=== PATIENT | female | born 2005 | race Caucasian/White ===

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

== ENCOUNTER 2024-01-06 01:39 | Emergency (ER) | payer BC, SELFPAY ==
[2024-01-06] VITALS (12 sets, daily range): BP systolic 117–138; BP diastolic 77–79; PULSE 98–134; RESP 11–25; TEMP 36.4–36.8; O2SAT 96–100
--- NOTE | ~2024-01-06 | XR_ITS ---
Portable chest x-ray Comparison: None Clinical History: Chest pain Findings: Lungs are clear, without focal consolidation or pleural effusion. Cardiomediastinal silho uette is unremarkable. Bones and soft tissues are unremarkable. Impression: Normal chest. Reviewed, dictated and finalized at location M. Impression: Normal chest.
--- NOTE | 2024-01-06 01:46 | ECG_ITS ---
Test Date: 2024-01-06 01:49:52 Measurements Intervals [place] Rate: 134 P: 42 IL: 151 QRS: 43 QRSD: 80 T: 13 QT: 301 QTc: 450 Interpretive Statements SINUS TACHYCARDIA NONSPECIFIC T-WAVE ABNORMALITY ABNORMAL ECG No previous ECG available for comparison Electronically Signed On 01-06-2024 10:43:49 CDT by Tony Dawn M.D.
[2024-01-06 02:29] LABS: Influenza A QL RT-PCR Negative (Negative); Influenza B QL RT-PCR Negative (Negative); SARS-CoV-2 RNA PCR Negative (Negative)
[2024-01-06] MEDS: SODIUM CHLORIDE 0.9% IV 1,000 ML 999 ML IV CONT (02:43)
[2024-01-06 02:48] LABS: Basophils Absolute Auto 0.1 K/mm3 (0.0-0.1); Basophils Percent Auto 0.2 % (0.2-1.2); Eosinophils Absolute Auto 0.1 K/mm3 (0-0.3); Eosinophils Percent Auto 0.4 % (0-4.4); Hemoglobin 14.2 g/dL (12.0-15.0); Immature Granulocyte Absolute 0.11 K/mm3 (0.00-0.031); Immature Granulocyte Percent A 0.5 % (0-0.5); Lymphocytes Absolute Auto 2.79 K/mm3 (0.9-3.2); Lymphocytes Percent Auto 13.3 % (18.3-44.2); Mean Corpuscular HGB Conc 33.8 g/dl (32-36); Mean Corpuscular Hemoglobin 29.5 pg (26-34); Mean Corpuscular Volume 87.1 fl (80-100); Mean Platelet Volume 12.9 fl (7.4-10.4); Monocytes Absolute Auto 1.4 K/mm3 (0.1-0.6); Monocytes Percent Auto 6.5 % (2.6-8.5); Neutrophils Absolute Auto 16.6 K/mm3 (1.3-6.7); Neutrophils Percent Auto 79.1 % (45.5-73.1); Platelet Count Result 212 k/mm3 (150-375); Red Blood Count 4.82 M/mm3 (4.2-5.4); Red Cell Distribution Width 12.6 % (11.5-14.5)
[2024-01-06 03:05] LABS: Alanine Aminotransferase 20 U/L (6-35); Albumin Level 4.4 g/dL (3.7-5.6); Alkaline Phosphatase 86 U/L (45-116); Anion Gap 9 mmol/L (4-12); Aspartate Amino Transferase 24 U/L (14-36); Bilirubin,Total 0.5 mg/dL (0.2-1.3); Blood Urea Nitrogen 9 mg/dL (8-21); Calcium 9.5 mg/dL (8.9-10.7); Carbon Dioxide 25 mmol/L (22-30); Chloride 103 mmol/L (98-107); Estimated CRCL calculation 120 ml/min; Estimated Glomerular Filt Rate > 60; Glucose 128 mg/dL (65-110); Magnesium 1.9 mg/dL (1.6-2.3); Potassium 3.6 mmol/L (3.4-5.0); Sodium 137 mmol/L (134-143)
[2024-01-06 03:15] LABS: D Dimer < 0.27 ug/mL (<0.48)
--- NOTE | 2024-01-06 04:02 | ED.CHESTPAIN ---
HPI - Chest Pain General Chief Complaint: Chest Pain Stated Complaint: Chest pain, body aches, cough Time Seen by Provider: 01/06/24 01:42 History of Present Illness HPI narrative: Patient is a 18-year-old female who presents to the emergency department this evening complaining of a cough, chest pain, nasal congestion and body aches for the past week. Patient states that she recently finished a full dose of a Z-Hardik and 5 days of prednisone but does not feel as though it has improved her symptoms. She denies any fevers or chills at home. Admits to history of asthma and states that she used her albuterol inhaler at home prior to coming. Denies any nausea vomiting or abdominal pain and denies any urinary symptoms including dysuria or hematuria. No additional symptoms or concerns at this time. Related Data Home Medications Medication Instructions Recorded Confirmed cetirizine 10 mg capsule (Zyrtec) 10 mg PO DAILY PRN 11/28/20 01/15/22 montelukast 10 mg tablet 10 mg PO DAILY 11/28/20 01/15/22 (Singulair) spironolactone 100 mg tablet 100 mg PO DAILY 11/28/20 01/15/22 Allergies Allergy/AdvReac Type Severity Reaction Status Date / Time NKDA Allergy Mild unknown Uncoded 01/15/22 13:38 Review of Systems Review of Systems: All systems are reviewed and are negative unless stated otherwise in the HPI. Exam Narrative: General: Alert, awake, afebrile, in no acute distress. HEENT: PERRL, no rhinorrhea, no post nasal drip, oropharynx clear. Cardiovascular: Regular rate and rhythm, no murmurs, rubs or gallops, no peripheral edema. Respiratory: Clear to auscultation bilaterally, no tachypnea, no wheezing, no rhonchi, no rubs, no respiratory distress. Abdomen: Soft, nontender, nondistended, no rebound, no guarding, no peritoneal signs. Musculoskeletal: No joint swelling or deformity, normal muscle tone. Skin: No rashes or petechia, no signs of infection. Neurological: Alert and oriented to person, place, and time. Follows all commands. No focal deficits, speech is clear and fluent. Course Vital Signs Vital signs: Vital Signs Temperature 97.5 F L 01/06/24 01:42 Pulse Rate 134 H 01/06/24 01:42 Respiratory Rate 20 01/06/24 01:42 Blood Pressure 138/77 01/06/24 01:42 Pulse Oximetry 100 01/06/24 01:42 Oxygen Delivery Room Air 01/06/24 01:42 Temperature 98.2 F 01/06/24 04:13 Pulse Rate 98 01/06/24 04:13 Respiratory Rate 16 01/06/24 04:13 Blood Pressure 117/79 01/06/24 04:13 Pulse Oximetry 100 01/06/24 04:13 Oxygen Delivery Room Air 01/06/24 01:42 MDM - Chest Pain MDM Narrative Medical decision making narrative: The patient was evaluated by myself in the emergency department. History is obtained from patient who is an independent historian and physical exam was performed. External medical records were reviewed at this time. IV was established and pertinent tests were ordered. Patient was administered a 1 L IV fluid bolus with normal saline. EKG was obtained which revealed sinus tachycardia rate of 134 beats per minute, no evidence of acute ischemia. EKG was independently interpreted by me and is currently pending official cardiology read. Laboratory results obtained revealing a leukocytosis of 21 neutrophil predominance likely secondary to recent steroid use, otherwise no acute process. Viral swabs for influenza a and COVID were negative. Imaging studies obtained included CXR which was independently interpreted by me revealing no acute process, which is pending final radiology interpretation. Differential diagnosis considerations include acute viral syndrome, infectious process such as pneumonia and asthma exacerbation. Comorbidities affecting this visit are none. I have evaluated and discussed social determinants of health with the patient that could potentially impact subsequent diagnosis and treatment plans. On repeat assessment of the patient, reevaluation reveal
== END 2024-01-06 04:14 | disposition home or self-care (01) ==
PROVIDERS: Emergency Provider Emergency Medicine
DX: B34.9 Viral infection, unspecified (principal); Z20.822 Contact with and (suspected) exposure to COVID-19
CPT/HCPCS: 36415; 71045; 80053; 83735; 85025; 85380; 87636; 93005; 96360; 99284; J7030

== ENCOUNTER 2024-12-18 02:59 | Emergency (ER) | payer BC, SELFPAY ==
--- OUTSIDE RECORDS SUMMARY | 2018-06-19 02:58 | XMS_ITS | Continuity of Care Document ---
Author Organization [facility] Address [address] [place] [address] Phone Care Team Providers Care Meat Washer Name Role Phone Daniele Guy MD Unavailable Unavailable Allergies, Adverse Reactions, Alerts Substance Reaction Status Criticality Unknown(not reported) Active No Inf ormation Medications Medication Instructions Dosage Effective Dates (start - stop) Status Comments Singulair 10 mg tablet take 1 tablet by oral route every day in the evening 10 MG - Active Symbicort 160 mcg-4.5 mcg/actuation HFA aerosol inhaler inhale 2 puff by inhalation route 2 times every day in the morning and evening 2.00 puff - Active ibuprofen 200 mg capsule take 1 capsule by oral route every 6 hours as needed 200 MG - Active Spiriva Respimat 1.25 mcg/actuation solution for inhalation inhale 2 puff by inhalation route every day 2.5 MCG - Active Procedures Procedure Date OFFICE/OUTPATIENT VISIT [facility] Advance Directives Directive Yes / No Effective Date File Name No Information Encounters Encounter Description Practice Location Reason(s) For Visit Diagnoses Date Provider Providers Copied on Encounter [facility], [address], [place], [address], [phone] [facility] No Information 9 Brooks Sanabria. [address], [place], [place], [id number] , [place]. tel: [phone] OFFICE/OUTPAT IENT VISIT [facility], [address], [place], [address], [phone] [facility] Right medial tibial stress syndrome, initial encounterLeft medial tibial stress syndrome, initial encounter 9 Brooks Sanabria. [address], [place], [place], [id number] , [place]. tel: [phone] Family History Family Member Type Diagnosis Age At Onset Brother Problem (finding) Alive and well Father Problem (finding) hypertension Sister Problem (finding) Alive and well Mother Problem (finding) Renal disease Payers Payer name Insurance type Covered constitution party ID Authoriza tion(s) No Information Social History Type Description Quantity Date Captured Comments Alcohol Use Details Unknown Caffeine Use Details Unknown Tobacco Use Status No Information Smoking Status No Information Sex Female Chief Complaint And Reason For Visit No Information Reason For Referral Reason For Referral No Information Plan Of Treatment Date Type Action Status Referral Ordered: RADEX TIBFIB 2 VIEWS RT ordered Referral Ordered: RADEX TIBFIB 2 VIEWS LT ordered History Of Present Illness Encounter Date Complaint History Of Prese nt Illness No Information Functional Status Date Functional Assessmen t No Information Instructions Date Instruction Additional Infor mation No Information Assessments Type Assessment Date No Information Patient Care Teams Name Effective Dates (start - stop) Status Members No Information
--- OUTSIDE RECORDS SUMMARY | 2023-07-11 12:30 | XMS_ITS ---
Author Organization [facility] [place] ([address]) Address [address] [place] [address] Care Team Providers Care Metals Sales Representative Name Role Phone Jax Rodriguez Primary Care Provider Ileana Matthews Unavailable [phone] Alan Sierra Unavailable [phone] REASON FOR VISIT SCIT - Traditional Schedule Allergy Immunotherapy Social History Sex Assigned At : Social History Observation Description Sex Assigned At Female Encounters Encounter Location Date Provider Diagnosis [facility] [address] [place] [address] 07/11/2023 Alan Sierra Allergic rhinitis du e to pollen J30.1 ; Other allergic rhinitis J30.89 ; Allergic rhinitis due to animal (cat) (dog) hair and dander J30.81 and Other chronic allergic conjunctivitis H10.45 Assessments Encounter Date Diagnosis (ICD Code) Assessment Notes Treatment Notes Treatment Clinical Notes Section Notes 07/11/2023 Allergic rhinitis due to pollen (ICD-10 - J30.1) 07/11/2023 Other allergic rhinitis (ICD-10 - J30.89) 07/11/2023 Allergic rhinitis due to animal (cat) (dog) hair and dander (ICD-10 - J30.81) 07/11/2023 Other chronic allergic conjunctivitis (ICD-10 - H10.45) Plan Of Treatment Next Appt Details Follow Up: 1 Week, Reason: Progress Notes * Christopher JERNIGANOB:[birth year] (19 yo F)Acc No.[id number]:07/11/2023 SCIT-Aeroallergen Patient: Nuzhat CHRISTIE Provider: Chayito Sierra MD :2005 A ge:18 Y S ex:Female Date:07/11/2023 Address:[address] [place], [place] [id number] Pcp:Jax Rodriguez Subjective: * Chief Complaints: * 1 . SCIT - Traditional Schedule Allergy Immunotherapy. * HPI: * Introduction: The patient is here for scheduled immunotherapy. Please see the attached specialty form regarding the specifics of the administration of these vaccines. As per our protocol, they must undergo a screening health questionnaire (medication changes, reaction(s) to last immunotherapy dose(s), current health status, ACT (if appropriate), self-injectable epinephrine on patient(?) and peak flow (if appropriate)). Also, the patient must wait in our office for 30 minutes after receiving the vaccine(s). Furthermore, every patient must have an epinephrine pen (self-injectable) with them at the time of administration--and carry if for the following 1.5 hours after they leave our office. The patient must also have taken their antihistamine the day of the injection, preferably 2 hours prior. The consent form for SCIT (subcutaneous immunotherapy) is on file. * Medical History: Objective: * Vitals: Assessment: * Assessment: 1. A llergic rhinitis due to pollen - J30.1 (Primary) 2 . O ther allergic rhinitis - J30.89 3 . A llergic rhinitis due to animal (cat) (dog) hair and dander - J30.81 4 . O ther chronic allergic conjunctivitis - H10.45 Plan: * Treatment: * Follow Up: 1 Week * Billing Information: * Visit Code: * Procedure Codes: 92566 IMMUNOTHERAPY INJECTIONS. * Electronic signature of Lynnette Sierra MD, FAAAAI on 12/18/2024 at 04:33 AM CDT Sign off status: Pending * Provider: Chayito Sierra MD Date: 0 07/11/2023 Generated for Printi ng/Joelle/eTransmitting on: 1 04:33 AM CDT History and Physical Notes * HPI (History of Present Illness) Category Sub-Category Detail Notes Category Not es *Introduction The patient is here for scheduled immunotherapy. Please see the attached specialty form regarding the specifics of the administration of these vaccines. As per our protocol, they must undergo a screening health questionnaire (medication changes, reaction(s) to last immunotherapy dose(s), current health status, ACT (if appropriate), self-injectable epinephrine on patient(?) and peak flow (if appropriate)). Also, the patient must wait in our office for 30 minutes after receiving the vaccine(s). Furthermore, every patient must have an epinephrine pen (self-injectable) with them at the time of administration--and carry if for the following 1.5 hours after they leave our office. The patient must also have taken their antihistamine the day of the injection, preferably 2 hours prior. The consent form for SCIT (subcutaneous immunotherapy) is on file.
--- OUTSIDE RECORDS SUMMARY | 2023-08-31 16:30 | XMS_ITS ---
Author Organization [facility] [address] [facility] [address] ([address]) Address [address] [place] [address] Care Team Providers Care German Instructor Name Role Phone Jax Rodriguez Primary Care Provider UnavailIleana Hernandez Unavailable [phone] ZZ-Migration, Provider Unavailable Unavailab [facility] Con[facility] Encounter Medications Medication SIG (Take, Route, Frequency, Duration) Notes Start Date End Date Status Symbicort 160-4.5 MCG/ACT 2 puff(s) inhaled 2 times a day; Duration: 30 day(s) Not-Taking Benadryl Allergy 25 MG 1 tab(s) orally 3 times a day Active LEVALBUTEROL TARTRATE HFA 45 MCG/INH 2 PUFF(S) INHALED EVERY 4 HOURS; Duration: 30 DAY(S) *Please review for potential replacement for e-prescription and drug interaction check* Not-Taking Auvi-Q 0.3 MG/0.3ML 0.3 mg intramuscularly once; Duration: 30 day(s) Active Ventolin HFA 108 (90 Base) MCG/ACT 2 puff(s) inhaled Q4-6 hours, PRN and per the asthma action plan; Duration: 90 days Not-Taking Arnuity Ellipta 200 MCG/ACT 1 puff(s) inhaled once daily; Duration: 90 days Active NuvaRing 0.12-0.015 MG/24HR 1 ea intravaginally every 4 weeks Active ALBUTEROL (EQV-PROAIR HFA) 90 MCG/INH 2 PUFF(S) INHALED EVERY 6 HOURS; Duration: 90 DAYS *Please review for potential replacement for e-prescription and drug interaction check* Active Spironolactone 100 MG 1 tab(s) orally once a day; Duration: 30 day(s) Active Vitamin D3 50 MCG 1 TAB(S) ORALLY ONCE A DAY; Duration: 30 DAY(S) *Please review and pick correct strength-formula tion from [employer] options. If intended option is not shown, discontinue and re-order from Quick Search* Active SIT (TRADITIONAL) VARIABLE PER SCHEDULE SC PER SCHEDULE; Duration: TO BE DETERMINED *Please review for potential replacement for e-prescription and drug interaction check* Active PROAIR HFA 90 MCG/INH 2 PUFF(S) INHALED Q4-6 HOURS, PRN AND PER THE ASTHMA ACTION PLAN; Duration: 30 DAY(S) *Please review for potential replacement for e-prescription and drug interaction check* Active Singulair 10 MG 1 tab(s) orally once a day; Duration: 30 days Active AEROCHAMBER MDI SPACER N/A USER WITH MDI INHALERS BY MOUTH Q4-6 HOURS PRN; Duration: 30 DAY(S) *Please review for potential replacement for e-prescription and drug interaction check* Active NEBULIZER COMPAIR NE-C801 *Please review for potential replacement for e-prescription and drug interaction check* Active Famotidine 20 MG 1 tab(s) orally 30 minutes prior to allergy shots; Duration: 90 days Active NASAL WASHES N/A DIRECTED INTRANASALLY NEEDED; Duration: 30 *Please review for potential replacement for e-prescription and drug interaction check* Active Microgestin FE 04/06 WITH IRON 20 MCG-1 MG (PRIOR AUTH: RX REF#:[id number]) *Please review and pick correct strength-formula tion from [employer] options. If intended option is not shown, discontinue and re-order from Quick Search* Active Cetirizine HCl 10 MG 1 tab(s) orally Qday; Duration: 90 days Active Fluticasone Propionate 50 MCG/ACT 50 mcg, 2 sprays intranasally once a day; Duration: 30 day(s) Active Social History Sex Assigned At : Social History Observation Description Sex Assigned At Female Encounters Encounter Location Date Provider Diagnosis [facility] [address] [place] [id number] 08/31/2023 Provider Linda Dermatitis due to ingested food L27.2 Assessments Encounter Date Diagnosis (ICD Code) Assessment Notes Treatment Notes Treatment Clinical Notes Section Notes 08/31/2023 Dermatitis due to ingested food (ICD-10 - L27.2) Plan Of Treatment Medication Medication Name Sig Start Date Stop Date Notes Auvi-Q 0.3 MG/0.3ML 0.3 mg intramuscular ly once; Duration: 30 day(s) Singulair 10 MG 1 tab(s) orally once a day; Duration: 30 days Progress Notes * ELISABETH ChristopherOB:[birth year] (19 yo F)Acc No.[id number]:08/31/2023 Patient: Nuzhat CHRISTIE Provider: Chayito Castellanos :2005 A ge:18 Y S ex:Female Date:08/31/2023 Address:[address] [place], [place] [id number] Pcp:Jax Rodriguez Subjective: * Chief Complaints: * 1 . [facility] Conversion Encounter. * Medical History: * Medications: T aking Microgestin FE 04/06 WITH IRON 20 MCG-1 MG TABLET (PRIOR AUTH: RX REF#:[id number]) , Notes to Pharmacist: *Please review and pick [facility]. If intended option is not shown, discontinue and re-order from Quick Search*, Taking NASAL WASHES N/A 1 QUART OF STERILIZED TAP WATER OR DISTILLED WATER, 1 TSP NACL, 1 PINCH OF BAKING SODA DIRECTED INTRANASALLY NEEDED , Notes to Pharmacist: *Please review for potential replacement for e-prescription and drug interaction check*, Taking Fluticasone Propionate 50 MCG/ACT Suspension 50 mcg, 2 sprays intranasally once a day , Taking Cetirizine HCl 10 MG Tablet 1 tab(s) orally Qday , Taking Famotidine 20 MG Tablet 1 tab(s) orally 30 minutes prior to allergy shots , Taking SIT (TRADITIONAL) VARIABLE SEE RECORD PER SCHEDULE SC PER SCHEDULE , Notes to Pharmacist: *Please review for potential replacement for e-prescription and drug interaction check*, Taking Auvi-Q 0.3 MG/0.3ML Solution Auto-injector 0.3 mg intramuscularly once , Taking PROAIR HFA 90 MCG/INH AEROSOL 2 PUFF(S) INHALED Q4-6 HOURS, PRN AND PER THE ASTHMA ACTION PLAN , Notes to Pharmacist: *Please review for potential replacement for e-prescription and drug interaction check*, Taking AEROCHAMBER MDI SPACER N/A N/A USER WITH MDI INHALERS BY MOUTH Q4-6 HOURS PRN , Notes to Pharmacist: *Please review for potential replacement for e-prescription and drug interaction check*, Taking NEBULIZER COMPAIR NE-C801 , Notes to Pharmacist: *Please review for potential replacement for e-prescription and drug interaction check*, Taking Arnuity Ellipta 200 MCG/ACT Aerosol Powder Breath Activated 1 puff(s) inhaled once daily , Taking ALBUTEROL (EQV-PROAIR HFA) 90 MCG/INH AEROSOL 2 PUFF(S) INHALED EVERY 6 HOURS , Notes to Pharmacist: *Please review for potential replacement for e-prescription and drug interaction check*, Taking NuvaRing 0.12-0.015 MG/24HR Ring 1 ea intravaginally every 4 weeks , Taking Vitamin D3 50 MCG TABLET 1 TAB(S) ORALLY ONCE A DAY , Notes to Pharmacist: *Please review and pick correct strength-formulation from [employer] options. If intended option is not shown, discontinue and re-order from Quick Search*, Taking Spironolactone 100 MG Tablet 1 tab(s) orally once a day , Taking Benadryl Allergy 25 MG Tablet 1 tab(s) orally 3 times a day , Not-Taking/PRN Symbicort 160-4.5 MCG/ACT Aerosol 2 puff(s) inhaled 2 times a day , Not- Taking/PRN LEVALBUTEROL TARTRATE HFA 45 MCG/INH AEROSOL 2 PUFF(S) INHALED EVERY 4 HOURS , Notes to Pharmacist: *Please review for potential replacement for e-prescription and drug interaction check*, Not-Taking/PRN Ventolin HFA 108 (90 Base) MCG/ACT Aerosol Solution 2 puff(s) inhaled Q4-6 hours, PRN and per the asthma action plan Objective: * Vitals: Assessment: * Assessment: 1. D ermatitis due to ingested food - L27.2 Plan: * Treatment: 2. O thers Start Singulair Tablet, 10 MG, 1 tab(s), orally, once a day, 30 days, 30, Refills 5. * Billing Information: * Visit Code: * Procedure Codes: * Electronic signature of Chelsi ARANDA-Migration on 12/18/2024 at 04:35 AM CDT Sign off status: Pending * Provider: Chayito pepe Migration Date: 0 08/31/2023 Generated for Mariola dill/Joelle/Nimisha on: 1 04:35 AM CDT
--- NOTE | ~2024-12-18 | XR_ITS ---
Examination: XR chest 2V Clinical History: sob Comparison: 01/06/2024 Technique: PA and Lateral Findings: Cardiomediastinal silhouette normal size and configuration. Lungs clear. No acute bony abnormality. IMPRESSION: 1. No acute cardiopulmonary findings. Reviewed, dictated and finalized at location R.
[2024-12-18 03:11] VITALS: BP 145/87; PULSE 108; RESP 18; O2SAT 99
[2024-12-18 03:24] VITALS: O2SAT 99
[2024-12-18 03:25] VITALS: BP 132/90; PULSE 104; RESP 20; O2SAT 99
--- OUTSIDE RECORDS SUMMARY | 2024-12-18 04:31 | XMS_ITS | Clinical Summary ---
Author Organization [facility] Address [address] [facility] [place] [address] Care Team Providers Care Mds Coordinator Name Role Phone Beatrice Rodriguez MD PhD Primary Care Provider [phone] Allergies Active Allergy Reactions Criticality Noted Date Comments Cat Dander Dog Dander Mold Shellfish Containing Products Itching,Rash Medium Tree And Shrub Pollen Medications albuterol (PROVENTIL,VENT ANGELINA) 2.5 mg /3 mL (0.083 %) nebulizer solution USE 1 UNIT DOSE EVERY 4-6 HOURS NEEDED. 8 Active EPINEPHrine (AUVI-Q) 0.3 mg/0.3 mL auto-injection syringeIndicati ons:Anaphylaxis USE DIRECT IN EMERGENT EVENT THEN CALL 911 5 Active EPINEPHrine (EPIPEN 2-JANNA) 0.3 mg/0.3 mL auto-injection syringeIndicati ons:Anaphylaxis INJECT DIRECTED IN EMERGENT EVENT, THEN CALL 911 5 Active albuterol HFA (PROAIR HFA) 90 mcg/actuation inhaler USE 2 INHALATIONS EVERY 4 TO 6 HOURS NEEDED 4 Active sulfamethoxazol e-trimethoprim (BACTRIM,SEPTRA ) 800-160 mg per tablet 2 times daily. 6 Active budesonide-form oterol (SYMBICORT) 160-4.5 mcg/actuation inhaler INHALE 2 PUFFS TWICE A DAY, RINSE MOUTH AFTER USE 3 Active omeprazole (PriLOSEC) 40 mg capsule Active MICROGESTIN FE 04/06, 28, 1 mg-20 mcg (21)/75 mg (7) per tablet 8 Active cetirizine (ZyrTEC) 10 mg tablet TAKE ONE TABLET BY MOUTH 30 MINUTES BEFORE SHOTS 1 Active spironolactone (ALDACTONE) 100 mg tablet TAKE 1 TABLET BY MOUTH DIRECTED IN THE MORNING WITH BREAKFAST 1 Active montelukast (SINGULAIR) 10 mg tablet TAKE 1 TABLET BY MOUTH ONCE DAILY FOR 90 DAYS 1 Active mupirocin (BACTROBAN) 2 % ointment APPLY OINTMENT EXTERNALLY TO AFFECTED AREA TWICE DAILY 1 Active cephalexin (KEFLEX) 500 mg capsule Take 500 mg by mouth 2 (two) times a day 1 Active meloxicam (MOBIC) 15 mg tablet Take 1 tablet (15 mg total) by mouth daily for 14 days 14 tablet 3 Active Active Problems Problem Noted Date Diagnosed Date 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 03/14/2016 Urinary tract infection 10/24/2015 Acquired labial adhesion 04/14/2015 Perineal pain 04/14/2015 Dermatitis due to food taken internally 02/11/20 13 Disease of bladder 01/21/2013 Chronic constipation 02/25/2012 Incomplete emptying of bladder 10/31/2011 Hay fever 12/16/2007 Moderate persistent asthma without complication 12/16/2007 Immunizations Immunization Administration Dates Next Due Hep B, Adolescent or Pediatric 2004 Influenza, Quadrivalent, Spl it, Preservative Free, Intramuscular 02/07/2020,03/18/2017 Influenza, Trivalent, IM (MDV) 02/15/2018,2017,02/10/2013 Influenza, Trivalent, Preser vative Free, Intramuscular 03/14/2016,03/14/2012 Pfizer SARS-CoV-2 Monovalent Vaccination (12+ Yrs) PURPLE 06/09/2020,05/17/2020 Surgical History Surgery Date Site/Laterality Comments TONSILLECTOMY WISDOM TOOTH EXTRACTION Medical History Medical History Date Comments Urinary incontinence Diurnal enu resis - (Added by TW Conv) Nocturnal enuresis Primary noctu rnal enuresis - (Added by TW Conv) Urinary incontinence Enuresis - (Added by TW Conv) Personal history of other di seases of urinary system History of chronic cystitis - (Added by TW Conv) 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 - (Added by TW Conv) Urinary tract infection UTI (low er urinary tract infection) - (Added by TW Conv) Anxiety Asthma Depression Gastric reflux Family History Medical History Relation Name Comments Enuresis Father Enuresis - (Add ed by TW Conv) Arthritis Mother Clotting disorder Mother Nephrolithiasis Mother Family histo ry of nephrolithiasis - (Added by TW Conv) Relation Name Status Comments Father Mother Social History Tobacco Use Types Packs/Day Years Used Date Smoking Tobacco: Never Assessed Comments Unknown Sex and Gender Information Value Date Recorded Sex Assigned at Not on file 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 Gender Identity Not on file Sexual Orientation Not on file Obstetrics History Last Filed Vital Signs Vital Sign Reading Time Taken Comments Blood Pressure 100/60 03/14/2016 2:15 PM RETAIL MERCHANDISING MANAGER Pulse 104 03/14/2016 2:15 PM RETAIL MERCHANDISING MANAGER Temperature - - Respiratory Rate - - Oxygen Saturation - - Inhaled Oxygen Concentration - - Weight 90.7 kg (200 lb) 09/27/2022 2:49 PM CDT Height 167.6 cm (5' 6) 09/27/2022 2:49 PM CDT Body Mass Index 32.28 09/27/2022 2:49 PM CDT Plan of Treatment Health Maintenance Due Date Last Done Comments Depression Screening 2004 Hepatitis C Screening 2004 DTaP/Tdap/Td Vaccine (1 - Tdap) 2015 Varicella Vaccines (1 of 2 - 13+ 2-dose series) 2017 HPV Vaccines (1 - 3-dose series) 2019 Meningococcal B Vaccine (1 of 2 - Standard) 2020 Regular Well Visit/Exam 18-64 2022 Pneumococcal vaccine <65 (1 of 2 - PCV) 2023 Covid-19 Vaccine (5 - 2024- season) 2024 03/24/2022, 03/25/2021, 06/09/2020, Additional history exists Influenza Vaccine (#1) 2024 1, 02/07/2020, 02/15/2018, Additional history exists Hepatitis B Screening Completed 2004 Meningococcal Vaccine Aged Out No jean-paul lorenza eligible based on patient's age to complete this topic [place] [email or web address] [place] Care Teams Mds Coordinator Relationship Specialty Start Date End Date Beatrice Rodriguez MD PhD [address] [facility] [address] [place] [address] PCP - General Pediatrics 10/16/17
--- OUTSIDE RECORDS SUMMARY | 2024-12-18 04:31 | XMS_ITS | Clinical Summary ---
Author Organization [facility] Address [address] [place] [address] Phone Care Team Providers Care Selvage Machine Operator Name Role Phone Unavailable Primary Care Provider Unavailabl e Allergies Active Allergy Reactions Criticality Noted Date Comments Naproxen Other (See Comments) 01/02/2016 stomache pain Medications albuterol (PROVENTIL,VENTOL IN) 0.63 mg/3 mL Solution for Nebulization Take 0.63 mg by inhalation one time only. Active DULoxetine (CYMBALTA) 20 mg Capsule, Delayed Release(E.C.) Take 20 mg by mouth daily. 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 Gender Identity Not on file Sexual Orientation Not on file Last Filed Vital Signs Vital Sign Reading Time Taken Comments Blood Pressure - - Pulse - - Temperature - - Respiratory Rate - - Oxygen Saturation - - Inhaled Oxygen Concentration - - Weight 49.9 kg (110 lb) 08/01/2017 10:11 AM CDT Height 154.9 cm (5' 1) 08/01/2017 10:11 AM CDT Body Mass Index 20.78 08/01/2017 10:11 AM CDT Plan of Treatment Health Maintenance Due Date Last Done Comments CHLAMYDIA SCREENING (ANNUAL) 11-24 YEARS 2015 HPV VACCINES (1 - 3-dose series) 2019 DTAP/TDAP/TD VACCINES (1 - Tdap) 2023 HEPATITIS B VACCINES (1 of 3 - 19+ 3-dose series) 04/19 INFLUENZA VACCINE (#1) 2024 Insurance [employer]
--- OUTSIDE RECORDS SUMMARY | 2024-12-18 04:32 | XMS_ITS | Encounter Summary ---
Author Organization [facility] Address [address] [place] [address] Care Team Providers Care Product Support Specialist Name Role Phone Unavailable Primary Care Provider Unavailabl e Encounter Details Date Type Department Care Team (Late st Contact Info) Description 2004 Outpatient Historical [facility] [id number] [place] [address] Molly Lombardo [address] [place] [address] Social History Tobacco Use Types Packs/Day Years Used Date Smoking Tobacco: Never Assessed Comments Unknown Sex and Gender Information Value Date Recorded Sex Assigned at Not on file 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
--- OUTSIDE RECORDS SUMMARY | 2024-12-18 04:32 | XMS_ITS | Patient Health Record ---
Author Organization Replaced By [facility] [employer] ([address]) Address [address] [place] [address] Care Team Providers Care Plant Operator Control Room Operator Name Role Phone Jax Rodriguez Primary Care Provider Ileana Matthews Unavailable [phone] Carlos A Edwards Unavailable [phone] Allergies No Known Allergies Results Component Value Reference Range Notes Spirometry Reviewed date:06/16/2024 09:58:32 AM Interpretation:Abnormal Performing Lab: Notes/Report: Abnormal SpiroPreBronchodilator_FVC 3.52 SpiroPostBronchodilator_FEF25_75 0 SpiroPreBronchodilator_FEF25_75 2.14 SpiroPreBronchodilator_FEV1 2.62 SpiroPrecentPredictionPost_FEF25_75 0 SpiroPrecentPredictionPost_FEV1 0 SpiroPrecentPredictionPost_FEV1_OVER_FVC 0 SpiroPrecentPredictionPost_FVC 0 SpiroPrecentPredictionPre_FEF25_75 49.4 SpiroPrecentPredictionPre_FEV1 72.8 SpiroPrecentPredictionPre_FEV1_OVER_FVC 84.8 SpiroPrecentPredictionPre_FVC 84.8 SpiroPredicted_FEF25_75 4.33 SpiroPreBronchodilator_FEV1_OVER_FVC 74.53 SpiroPreBronchodilator_PEF 5.14 SpiroPostBronchodilator_FVC 0 SpiroPostBronchodilator_FEV1 0 SpiroPostBronchodilator_FEV1_OVER_FVC 0 SpiroPostBronchodilator_PEF 0 SpiroPredicted_FVC 4.15 SpiroPredicted_FEV1 3.6 SpiroPredicted_FEV1_OVER_FVC 87.93 SpiroPredicted_PEF 6.92 Reason For Referral No Information Medications Medication SIG (Take, Route, Frequency, Duration) Notes Start Date End Date Status ARNUITY ELLIPTA furoate 200 mcg 1 puff(s) inhaled once daily; Duration: 90 days Active NEBULIZER COMPAIR [id number]-C801 Active Vitamin D3 50 MCG 1 TAB(S) ORALLY ONCE A DAY; Duration: 30 DAY(S) *Please review and pick correct strength-formula tion from Fur and Mask options. If intended option is not shown, discontinue and re-order from Quick Search* Active SINGULAIR 10 mg 1 tab(s) orally once a day; Duration: 90 days Active Microgestin FE 04/06 WITH IRON 20 MCG-1 MG (PRIOR AUTH: RX REF#:[id number]) *Please review and pick correct strength-formula tion from Fur and Mask options. If intended option is not shown, discontinue and re-order from Quick Search* Active AUVI-Q 0.3 mg 0.3 mg intramuscularly once; Duration: 30 day(s) Active Benadryl Allergy 25 MG 1 tab(s) orally 3 times a day Active Spironolactone 100 MG 1 tab(s) orally once a day; Duration: 30 day(s) Active NUVARING 0.015 mg-0.12 mg/24 hours 1 ea intravaginally every 4 weeks Active SYMBICORT 160 mcg-4.5 mcg/inh 2 puff(s) inhaled 2 times a day; Duration: 30 day(s) Not-Taking Montelukast Sodium 10 MG Take 1 tablet by mouth once daily; Duration: 30 due for f/u Active Symbicort 160-4.5 MCG/ACT 2 puff(s) inhaled 2 times a day; Duration: 30 day(s) Not-Taking VITAMIN D3 50 mcg 1 tab(s) orally once a day; Duration: 30 day(s) Active VENTOLIN HFA 90 mcg/inh 2 puff(s) inhaled Q4-6 hours, PRN and per the asthma action plan; Duration: 90 days Not-Taking SINGULAIR 10 mg 1 tab(s) orally once a day; Duration: 30 days Active Ventolin HFA 108 (90 Base) MCG/ACT 2 puff(s) inhaled Q4-6 hours, PRN and per the asthma action plan; Duration: 90 days Not-Taking BENADRYL 25 mg 1 tab(s) orally 3 times a day Active LEVALBUTEROL TARTRATE HFA 45 MCG/INH 2 PUFF(S) INHALED EVERY 4 HOURS; Duration: 30 DAY(S) *Please review for potential replacement for e-prescription and drug interaction check* Not-Taking CETIRIZINE HYDROCHLORIDE 10 mg 1 tab(s) orally Qday; Duration: 90 days Active FLUTICASONE PROPIONATE 50 mcg/inh 50 mcg, 2 sprays intranasally once a day; Duration: 30 day(s) Active NASAL WASHES N/A as directed intranasally as needed; Duration: 30 Active Breo Ellipta 200-25 MCG/ACT 1 puff Inhalation Once a day; Duration: 30 days 06/16/2024 Active NuvaRing 0.12-0.015 MG/24HR 1 ea intravaginally every 4 weeks Active MICROGESTIN FE 04/06 with iron 20 mcg-1 mg (Prior Auth: Rx Ref#:[id number]) Active ALBUTEROL (EQV-PROAIR HFA) 90 MCG/INH 2 PUFF(S) INHALED EVERY 6 HOURS; Duration: 90 DAYS *Please review for potential replacement for e-prescription and drug interaction check* Active Arnuity Ellipta 200 MCG/ACT 1 puff(s) inhaled once daily; Duration: 90 days Active Auvi-Q 0.3 MG/0.3ML as directed Injection as needed; Duration: 30 days 06/16/2024 Active AEROCHAMBER MDI SPACER N/A user with MDI inhalers by mouth q4-6 hours PRN; Duration: 30 day(s) Active Cetirizine HCl 10 MG 1 tab(s) orally Qday; Duration: 90 days Active PROAIR HFA 90 mcg/inh 2 puff(s) inhaled Q4-6 hours, PRN and per the asthma action plan; Duration: 30 day(s) Active Fluticasone Propionate 50 MCG/ACT 50 mcg, 2 sprays intranasally once a day; Duration: 30 day(s) Active SIT (TRADITIONAL) variable per schedule per schedule; Duration: 999 days Active Famotidine 20 MG 1 tab(s) orally 30 minutes prior to allergy shots; Duration: 90 days Active FAMOTIDINE 20 mg 1 tab(s) orally 30 minutes prior to allergy shots; Duration: 90 days Active Auvi-Q 0.3 mg 0.3 mg intramuscularly once; Duration: 30 day(s) Active Immunizations Vaccine Route Administration Date Status Comme nts DTaP < 7 y/o Unknown 12/01/2008 Administered Portal Information NOC PedvaxHIB Unknown 12/01/2008 Administered Portal Information NOC PedvaxHIB Unknown 12/01/2008 Administered Portal Information Hepatitis A Unknown 09/02/2009 Administered Portal Information Fluzone Quadrivalent Unknown 03/18/2017 Administered FluZone Quadrivalent Unknown 03/22/2017 Administered Portal Information NOC Fluzone Quadrivalent ID Intradermal 12/02/2017 Administered NOC Fluzone Quadrivalent Unknown 02/15/2018 Administered Flucelvax IM Intramuscular 01/10/2021 Administered NOC Flucelevax Quadrivalent Unknown 01/10/2021 Administered Covid 19 (Pfizer) Unknown 05/17/2020 Administered Covid 19 (Pfizer) Unknown 06/09/2020 Administered Covid 19 (Pfizer) Unknown 03/25/2021 Administered Fluzone, quadrivalent, preservative free Unknown 02/07/2020 Administered Social History Tobacco Use: Social History Observation Description Date Details (start date - stop date) Never Smoker NA - NA Sex Assigned At : Social History Observation Description Sex Assigned At Female Tobacco Control (Standard) Question Answer Notes Tobacco use: Nonsmoker Problems Problem Type SNOMED Code ICD Code Onset Dates Problem Status W/U Status Risk Notes Problem Wheezing (33154894) Wheezing (R06.2) Active confirmed Problem Chronic allergic conjunctivitis (85403397) Other chronic allergic conjunctivitis (H10.45) Active confirmed Problem Allergic rhinitis caused by pollen (disorder) (93873503) Allergic rhinitis due to pollen (J30.1) Active confirmed Problem Allergic rhinitis caused by animal hair and dander (486550477164712) Allergic rhinitis due to animal (cat) (dog) hair and dander (J30.81) Active confirmed Problem Allergic rhinitis (87667709) Other allergic rhinitis (J30.89) Active confirmed Problem Allergic rhinitis caused by pollen (disorder) (65982154) Allergic rhinitis due to pollen (J30.1) Active confirmed Problem Allergic rhinitis caused by animal hair and dander (887221190367152) Allergic rhinitis due to animal (cat) (dog) hair and dander (J30.81) Active confirmed Problem Allergic rhinitis (80371029) Other allergic rhinitis (J30.89) Active confirmed Problem Chronic allergic conjunctivitis (45880673) Other chronic allergic conjunctivitis (H10.45) Active confirmed Problem Eruption of skin (318700154) Rash and other nonspecific skin eruption (R21) Active confirmed Problem Allergic urticaria (67330157) Allergic urticaria (L50.0) Active confirmed Problem Chronic sinusitis (22132236) Other chronic sinusitis (J32.8) Active confirmed Problem Ingestion dermatitis caused by food (410260779) Dermatitis due to ingested food (L27.2) Active confirmed Vital Signs Blood pressure diastolic 69 mm Hg 06/16/2024 Oximetry 97 % 06/16/2024 Height 65.5 in 06/16/2024 Blood pressure systolic 129 mm Hg 06/16/2024 Weight 189.4 lbs 06/16/2024 BMI 31.04 kg/m2 06/16/2024 Encounters Encounter Location Date Provider Diagnosis [address] [address] 06/16/2024 Carlos A Edwards Allergic rhinitis du e to pollen J30.1 ; Allergic rhinitis due to animal (cat) (dog) hair and dander J30.81 ; Other allergic rhinitis J30.89 ; Other chronic allergic conjunctivitis H10.45 ; Wheezing R06.2 ; Other chronic sinusitis J32.8 ; Dermatitis due to ingested food L27.2 and Rash and other nonspecific skin eruption R21 [address] [address] 10/05/2024 Ileana Young Wheezing R06.[address] [address] 10/14/2024 Ileana Young Dermatitis due to ingested food L27.2 Assessments Encounter Date Diagnosis (ICD Code) Assessment Notes Treatment Notes Treatment Clinical Notes Section Notes 06/16/2024 Allergic rhinitis due to pollen (ICD-10 - J30.1) Nuzhat clearly suffers from atopic disease based upon our prior skin testing and history. Accordingly, we have encouraged an aggressive medication regimen, discussed nasal washes and allergy-specific avoidance measures. She has been holding SCIT for the past year due to feelings she wast not getting the benefit would have expecte. On MM for 3 years. We discussed potenital of increasing SCIT volume or consider reformulation. That said, she would like to continue off SCIT for now. Would consider restarting with reformulated vials. Return in 3 months for E&M 06/16/2024 Allergic rhinitis due to animal (cat) (dog) hair and dander (ICD-10 - J30.81) Follow allergen avoidance, meds and consider restarting SCIT 10/05/2024 Wheezing (ICD-10 - R06.2) 10/14/2024 Dermatitis due to ingested food (ICD-10 - L27.2) 06/16/2024 Other allergic rhinitis (ICD-10 - J30.89) Follow allergen avoidance, meds and consider restarting SCIT 06/16/2024 Other chronic allergic conjunctivitis (ICD-10 - H10.45) Given ocular signs and symptoms I encouraged allergy avoidance measures and meds as above. If symptoms persist, consider adding additional medications including intraocular antihistamine/mast cell stabilizer, PRN and consider restarting SCIT as an adjunctive measure 06/16/2024 Wheezing (ICD-10 - R06.2) Nuzhat has cough and wheezing, triggered by URIs, pollen, and exercise, worse in fall seasons. Again off controller. Previously saw benefit with controller. She reports increased SOB during hot weather. Typical in sports. She does report pnemonia this past January. Spirometry today again showed mild obstruction. She remains on Arnuity with noted improvement. Rarely needing LUKAS. AAP reviewed. Again discussed using LUKAS prior to exercise with spacer. She does report history of depressive thoughs, unclear if this was around the time of starting Singulair. Given this, will plan trial off. Otherwise will bump up to Breo to asses for additonal improvement. Rinse out mouth after use of controller. 06/16/2024 Other chronic sinusitis (ICD-10 - J32.8) Noted sinus infection 3 weeks ago s/p medrol dosse pack and abx with benefit. This is her first infection in the past year. Can consider work-up for PIDD with a modified immunodeficiency panel and vitamin D level if infections become more frequent, previously averaging ~4 infections/year. Continue to monitor 06/16/2024 Dermatitis due to ingested food (ICD-10 - L27.2) Hives related to shellfish ingestion while eating lo mein noodles with shrimp, although didn't actually eat the shrimp. + SPT at initial visit to all shellfish tested. ImmunoCAPS + to all tested shellfish, except oyster. Does not like shellfish. There may be cross-reactivity due to dust mites. Continues strict avoidance and carries AIE at all times. Continue strict avoidance and carry AIE at all times 06/16/2024 Rash and other nonspecific skin eruption (ICD-10 - R21) Symptoms c/w possible CIU vs. cholinergic urticaria. Resolved since starting Zyrtec 06/16/2024 Other Plan Of Treatment No Information Insurance Providers Payer Name Payer Address Payer Phone Subscriber Number Group Number Insured Name Patient Relationship to Insured Coverage Start Date Coverage End Date [facility] [address] [place] [address] [id number] Master [employer] Child - Insured has Financial Responsibility Medical (General) History Medical History History ICD Code Anaphylactic reaction due to shellfish ( crustaceans), initial encounter Wheezing Other chronic sinusitis Allergic urticaria Dermatitis due to ingested food Allergic rhinitis due to pollen Allergic rhinitis due to animal (cat) (d og) hair and dander Other allergic rhinitis Other chronic allergic conjunctivitis Surgical History Surgery Date(Month/Year) Tonsillectomy 03/14/2008
--- OUTSIDE RECORDS SUMMARY | 2024-12-18 04:33 | XMS_ITS | Clinical Summary ---
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 Gender Identity Not on file Sexual Orientation Not on file Plan of Treatment Health Maintenance Due Date Last Done Comments Hepatitis C Virus (HCV) Screening 2004 TdaP Immunization 2004 Human Papillomavirus (HPV) Immunization (1 - 3-dose series) 2019 Meningococcal B Immunization (1 of 2 - Standard) 2020 Hepatitis B Immunization (1 of 3 - 19+ 3-dose series) 2023 Influenza Immunization (#1) 11/16/202401/17, 02/15/2018, 12/02/2017, Additional history exists SARS-COV-2 Immunization ( - 2023- season) 2024 Respiratory Syncytial Virus (RSV) Immunization (Adult) (1 - 1-dose 75+ series) 2079 Meningococcal Immunization (ACWY) Aged Out No longer eligible based on patient's age to complete this topic Pneumococcal Immunization Combined Aged Out No longer eligible based on patient's age to complete this topic Rotavirus Immunization Aged Out No lo nger eligible based on patient's age to complete this topic
--- OUTSIDE RECORDS SUMMARY | 2024-12-18 04:34 | XMS_ITS | Encounter Summary ---
Author Organization [facility] Address [address] Attn: [place] [address] Care Team Providers Care Wood Handler Name Role Phone Unavailable Primary Care Provider Unavailabl e Encounter Details Date Type Department Care Team (Late st Contact Info) Description 2004 Inpatient Historical Hung Choi MD [address] [place] [address] Rd [address] [place] [address] SINGL BORN IN HOSP-W C/DELIVERY (Primary Dx) Social History Tobacco Use Types Packs/Day Years Used Date Smoking Tobacco: Never Assessed Comments Unknown Sex and Gender Information Value Date Recorded Sex Assigned at Not on file Legal Sex Female 3:57 AM LAVATORY ATTENDANT Gender Identity Not on file Sexual Orientation Not on file documented as of this encounter Plan of Treatment Not on file documented as of this encounter Procedures Procedure Name Priority Date/Time Associated Diagnosis Comments BILIRUBIN, TOTAL AND DIRECT Routine 2004 4:15 AM LAVATORY ATTENDANT BILIRUBIN, TOTAL AND DIRECT Routine 2004 5:00 AM LAVATORY ATTENDANT BILIRUBIN, TOTAL AND DIRECT Routine 2004 3:30 PM LAVATORY ATTENDANT CBC WITH DIFFERENTIAL Routine 2004 3:30 PM LAVATORY ATTENDANT CBC WITH DIFFERENTIAL Routine 2004 3:30 PM LAVATORY ATTENDANT CBC WITH DIFFERENTIAL Routine 2004 3:30 PM LAVATORY ATTENDANT RETICULOCYTES Routine 2004 3:30 PM LAVATORY ATTENDANT BILIRUBIN, TOTAL AND DIRECT Routine 2004 7:25 AM LAVATORY ATTENDANT documented in this encounter Results * (ABNORMAL) BILIRUBIN, TOTAL AND DIRECT (2004 4:15 AM LAVATORY ATTENDANT) BILIRUBIN DIRECT <0.1 0.0 - 0.6 mg/dL INTERFACE SYSTEM BILIRUBIN TOTAL 13.2(H) 1.5 - 12.0 mg/dL INTERFACE SYSTEM 2004 4:15 AM LAVATORY ATTENDANT Hugn Choi MD CHEMISTRY ORDERABLES Final Result Performing Organization Address [facility] Phone Number INTERFACE SYSTEM Refer to clinic/hospital department * (ABNORMAL) BILIRUBIN, TOTAL AND DIRECT (2004 5:00 AM LAVATORY ATTENDANT) BILIRUBIN DIRECT <0.1 0.0 - 0.6 mg/dL INTERFACE SYSTEM BILIRUBIN TOTAL 11.9(H) 3.4 - 11.5 mg/dL INTERFACE SYSTEM 2004 5:00 AM LAVATORY ATTENDANT Hung Choi MD CHEMISTRY ORDERABLES Final Result Performing Organization Address [facility] Phone Number INTERFACE SYSTEM Refer to clinic/hospital department * (ABNORMAL) CBC WITH DIFFERENTIAL (2004 3:30 PM LAVATORY ATTENDANT) NEUTROPHIL ABSOLUTE 5.99 K/uL INTERFACE SYSTEM LYMPHOCYTE ABSOLUTE 3.77 K/uL INTERFACE SYSTEM MONOCYTE ABSOLUTE 0.89 K/uL IN TERFACE SYSTEM EOSINOPHIL ABSOLUTE 0.33 K/uL INTERFACE SYSTEM BASOPHILS ABSOLUTE 0.11 K/uL INTERFACE SYSTEM NEUTROPHILS, SEG 52 16 - 60 % INT ERFACE SYSTEM BANDS 2 0 - 4 % INTERFACE SYSTEM LYMPHOCYTES 34 20 - 70 % INTERFAC E SYSTEM MONOCYTES 8(H) 0 - 7 % INTERFACE SYSTEM EOSINOPHILS 3 0 - 8 % INTERFAC E SYSTEM BASOPHILS 1 0 - 1 % INTERFACE SYSTEM PLATELET EST. Normal Normal INTERF KHUSHI SYSTEM ANISOCYTOSIS Slight INTERFA CE SYSTEM MACROCYTES Moderate INTERFACE SYSTEM POLYCHROMASIA Slight INTERF KHUSHI SYSTEM REVIEWED ON SMEAR WBC & Plt Reviewed INTERFACE SYSTEM 2004 3:30 PM LAVATORY ATTENDANT Hung Choi MD HEMATOLOGY ORDERABLES Final Result Performing Organization Address [facility] Phone Number INTERFACE SYSTEM Refer to clinic/hospital department * CBC WITH DIFFERENTIAL (2004 3:30 PM LAVATORY ATTENDANT) NRBC 0 <=0 /100 WBC INTERFACE SYSTEM 2004 3:3 0 PM LAVATORY ATTENDANT Hung Choi MD HEMATOLOGY ORDERABLES Final Result Performing Organization Address [facility] Phone Number INTERFACE SYSTEM Refer to clinic/hospital department * (ABNORMAL) CBC WITH DIFFERENTIAL (2004 3:30 PM LAVATORY ATTENDANT) RBC 5.77 3.90 - 6.00 M/uL INTERFACE SYSTEM HEMOGLOBIN 21.8 14.5 - 22.5 g/dL INTERFACE SYSTEM HEMATOCRIT 61.4 45.0 - 66.0 % INTERFACE SYSTEM MCV 106.4 88.0 - 123.0 fL INTERFACE SYSTEM MCH 37.8 34.0 - 40.0 pg INTERFACE SYSTEM MCHC 35.5(H) 29.0 - 35.0 % INTERFACE SYSTEM RDW 17.2(H) 11.5 - 14.5 % INTERFACE SYSTEM RDW-STDEV 67.8(H) 37.1 - 48.7 fL INTERFACE SYSTEM WBC 11.1 5.0 - 30.0 K/uL INTERFACE SYSTEM PLATELETS 147 140 - 350 K/uL INTERFACE SYSTEM Comment:WBC and Platelets ve rified by smear review. MPV 13.2(H) 9.3 - 12.4 fL INTERFACE SYSTEM 2004 3:30 PM LAVATORY ATTENDANT Hung Choi MD HEMATOLOGY ORDERABLES Final Result Performing Organization Address [facility]/ZIP Co de Phone Number INTERFACE SYSTEM Refer to clinic/hospital department * RETICULOCYTES (2004 3:30 PM LAVATORY ATTENDANT) RETICULOCYTES 5.4 2.0 - 6.0 % INTERFACE SYSTEM IMMATURE RETIC FRACTION 34 % INTERFACE SYSTEM 2004 3:30 PM LAVATORY ATTENDANT uHng Choi MD HEMATOLOGY ORDERABLES Final Result Performing Organization Address [facility] Co de Phone Number INTERFACE SYSTEM Refer to clinic/hospital department * (ABNORMAL) BILIRUBIN, TOTAL AND DIRECT (2004 3:30 PM LAVATORY ATTENDANT) BILIRUBIN DIRECT <0.1 0.0 - 0.6 mg/dL INTERFACE SYSTEM BILIRUBIN TOTAL 13.3(H) 3.4 - 11.5 mg/dL INTERFACE SYSTEM 2004 3:30 PM LAVATORY ATTENDANT Hung Choi MD CHEMISTRY ORDERABLES Final Result Performing Organization Address [facility] de Phone Number INTERFACE SYSTEM Refer to clinic/hospital department * (ABNORMAL) BILIRUBIN, TOTAL AND DIRECT (2004 7:25 AM LAVATORY ATTENDANT) BILIRUBIN DIRECT <0.1 0.0 - 0.6 mg/dL INTERFACE SYSTEM BILIRUBIN TOTAL 13.4(H) 3.4 - 11.5 mg/dL INTERFACE SYSTEM 2004 7:25 AM LAVATORY ATTENDANT Hung Choi MD CHEMISTRY ORDERABLES Final Result Performing Organization Address [facility] Co de Phone Number INTERFACE SYSTEM Refer to clinic/hospital department documented in this encounter Visit Diagnoses Diagnosis Single liveborn, born in hospital, delivered by delivery- Primary documented in this encounter
--- OUTSIDE RECORDS SUMMARY | 2024-12-18 04:36 | XMS_ITS | Encounter Summary ---
Author Organization [facility] Address [address] [place] [address] Phone Care Team Providers Care Cleaning Manager Name Role Phone Hung Choi Primary Care Provider Beatrice Sanford MD PhD Primary Care Provider [phone] Encounter Details Date Type Department Care Team (Late st Contact Info) Description 03/15/2016 Orders Only [facility] ProviderBurt MD [address] [place] [id number] Social History Tobacco Use Types Packs/Day Years Used Date Smoking Tobacco: Never Assessed Comments Unknown Sex and Gender Information Value Date Recorded Sex Assigned at Not on file Legal Sex Female 1:36 AM PROGRAM DEVELOPER Gender Identity Not on file Sexual Orientation Not on file documented as of this encounter Plan of Treatment Not on file documented as of this encounter Procedures Procedure Name Priority Date/Time Associated Diagnosis Comments PULMONARY - RESULT SCAN 03/15/2016 8:45 AM PROGRAM DEVELOPER documented in this encounter Results * PULMONARY - RESULT SCAN (03/15/2016 8:45 AM PROGRAM DEVELOPER) Anatomical Region Laterality Modality Other Narrative 03/15/2016 8:45 AM PROGRAM DEVELOPER Ordered by an unspecified provider. Historical Provider Final Res ult documented in this encounter Visit Diagnoses Not on filedocumented in this encounter Care Teams Cleaning Manager Relationship Specialty Start Date End Date Hung Choi PCP - General Pediatrics 07/12/17 10/15/17 Beatrice Rodriguez MD PhD [address] [facility] [address] [place] [address] PCP - General Pediatrics 10/16/17 documented as of this encounter
--- NOTE | 2024-12-18 04:45 | ED_ITS ---
HPI - SOB/Dyspnea General Chief Complaint: Shortness of Breath/Dyspnea Stated Complaint: breathing problems Time Seen by Provider: 12/18/24 04:19 Source: patient Mode of arrival: ambulatory Limitations: no limitations History of Present Illness HPI Narrative: Patient presents with report of breathing problems. She has felt short of breath , worse over the past few days. Takes Zyrtec daily though purchased 5mg instead of 10mg. Throat feels itchy. Had a cold 3 weeks ago. Rx of amoxicillin by urgent care in [place]. She felt better initially but now worse again. No PCP. History of asthma as well pneumonia last year and states it feels like that. No fevers or chills but night sweats. Out of her inhaler. Cough with phlegm. No chest pain but developed back pain after coughing. Related Data Home Medications ?Medication ?Instructions ?Recorded ?Confirmed ?Last Taken ?Type cetirizine 10 mg capsule (Zyrtec) 10 mg PO DAILY PRN 0 11/28/20 01/15/22 Unknown History montelukast 10 mg tablet 10 mg PO DAILY 11/28/2012/18 Unknown History (Singulair) spironolactone 100 mg tablet 100 mg PO DAILY 11/28/20 01/15/22 Unknown History Allergies Allergy/AdvReac Type Severity Reaction Status Date / Time shellfish derived Allergy Severe Anaphylactic Verified 12/18/24 03:15 Shock NKDA Allergy Mild unknown Uncoded 01/15/22 13:38 PMFSH Past Medical History Medical History Pneumonia 2023 Asthma Exam 2 Narrative: GENERAL: Well-appearing, well-nourished, and in no acute distress. HEAD: Normocephalic, atraumatic. EYES: Non injected, non icteric ENT: Nares clear, no rhinorrhea or epistaxis. Gross auditory acuity intact. NECK: Supple. No meningismus. CHEST: Speaking in full sentences. No respiratory distress. mild wheezes on auscultation, left more so than right. HEART: Tachycardic rate and rhythm. . ABDOMEN: Soft, nondistended. No rigidity or guarding. Not peritoneal EXTREMITIES: Normal range of motion. No lower extremity edema. SKIN: Warm, dry, no rash. NEURO: No focal deficits. Alert and oriented. Answering questions. Following commands. Normal speech without aphasia or dysarthria. PSYCH: Normal mood and affect. Course Vital Signs Vital signs: Vital Signs Pulse Rate 108 H 12/18/24 03:11 Respiratory Rate 18 12/18/24 03:11 Blood Pressure 145/87 H 12/18/24 03:11 Pulse Oximetry 99 12/18/24 03:11 Oxygen Delivery Room Air 12/18/24 03:11 Temperature 98.7 F 12/18/24 04:54 Pulse Rate 93 12/18/24 04:54 Respiratory Rate 16 12/18/24 05:14 Blood Pressure 129/85 12/18/24 04:54 Pulse Oximetry 99 12/18/24 04:54 Oxygen Delivery Room Air 12/18/24 03:24 MDM - SOB/Dyspnea MDM Narrative Medical decision making narrative: Patient presents with report of shortness of breath and cough over the past few days. In the emergency department she is afebrile with vital signs that show mild tachycardia as well as hypertension. Both resolved on repeat assessment. History of asthma but out of asthma inhaler. Some wheezes on exam. CBC with mild abnormalities on the differential but otherwise without anemia, leukocytosis, thrombocytopenia. Chemistry normal. D-dimer normal. Viral swab negative. Rx for Tessalon perles and Cepacol lozenges. Given PCP contact referral as she does not have one. Stable for DC. VS WNL. Differential Diagnosis Differential diagnosis: Likely community acquired pneumonia, asthma with exacerbation, pulmonary embolism and other (acute viral syndrome; bronchitis; malignancy) Lab Data Attestation: I reviewed the patient's lab results. 12/18/24 05:02 12/18/24 05:02 Labs: Lab Results 12/18/24 Range/Units 05:02 WBC 9.7 (4.5-10.0) K/mm3 RBC 4.72 (4.2-5.4) M/mm3 Hgb 13.5 (12.0-15.0) g/dL Hct 41.4 (37.0-47.0) % MCV 87.7 (80-100) fl MCH 28.6 (26-34) pg MCHC 32.6 (32-36) g/dl RDW 12.7 (11.5-14.5) % Plt Count 255 (150-375) k/mm3 MPV 12.1 H (7.4-10.4) fl Immature Gran % (Auto) 0.5 (0-0.5) % Neut % (Auto) 59.4 (45.5-73.1) % Lymph % (Auto) 24.4 (18.3-44.2) % [place] % (Auto) 9.0 H (2.6-8.5) % Eos % (Auto) 6.2 H (0-4.4) % Baso % (Auto) 0.5 (0.2-1.2) % Lymph # (Auto) 2.36 (0.9-3.2) K/mm3 [place] # (Auto) 0.9 H (0.1-0.6) K/mm3 Eos # (Auto) 0.6 H (0-0.3) K/mm3 Baso # (Auto) 0.1 (0.0-0.1) K/mm3 Abs Immat Gran (auto) 0.05 H (0.00-0.031) K/mm3 Absolute Neuts (auto) 5.7 (1.3-6.7) K/mm3 Absolute Nucleated RBC 0.000 (0.0-0.012) K/mm3 Nucleated RBC % 0.0 (0.0-0.2) % D-Dimer < 0.27 (<0.48) ug/mL Sodium 137 (137-145) mmol/L Potassium 3.9 (3.4-5.0) mmol/L Chloride 105 (98-107) mmol/L Carbon Dioxide 23 (22-30) mmol/L Anion Gap 9 (4-12) mmol/L BUN 15 D (7-17) mg/dL Creatinine 0.74 (0.7-1.0) mg/dL Estim Creat Clear Calc Not Reportable Estimated GFR > 60 (59 - ) Glucose 91 (65-110) mg/dL Calcium 9.3 (8.4-10.2) mg/dL Total Bilirubin 0.3 (0.2-1.3) mg/dL AST 24 (14-36) U/L ALT 23 (6-35) U/L Alkaline Phosphatase 77 (38-126) U/L Total Protein 7.2 (6.3-8.2) g/dL Albumin 4.1 (3.5-5.1) g/dL Influenza A (RT-PCR) Negative (Negative) Influenza B (RT-PCR) Negative (Negative) RSV (RT-PCR) Negative (Negative) SARS-CoV-2 RNA (RT-PCR) Negative (Negative) Imaging Data Attestation: I personally reviewed and interpreted this imaging study as follows: My impression: No acute intrathoracic process on my independent interpretation of CXR Radiologist's impression: Impressions Chest X-Ray 12/18/24 06:15 IMPRESSION: 1. No acute cardiopulmonary findings. ECG Data EKG #1: Attestation: I personally reviewed and interpreted this ECG as follows: ECG completion date: 12/18/24 ECG completion time: 05:16 Interpretation: Normal sinus rhythm at a rate of 94 beats per minute. There is some R to R variation consistent with sinus arrhythmia, likely due to respiratory variation in an otherwise healthy patient. [place] interval 134. QRS 86. QT /QTC 327/409. Good R-wave progression across the precordial leads. T-wave inversion in 3 but upright in contiguous inferior leads. No other concerning T-wave elevations. Discharge Plan Discharge Clinical Impression: Shortness of breath, Encounter for medication refill, Bronchitis Patient Disposition: Home Condition: Stable Instructions: Antibiotic Form, Acute Bronchitis (ED), Wheezing (ED), Shortness of Breath (ED) Additional Instructions: Because you do not have a primary care physician, the name of a doctor is listed below for follow-up/to establish care. Your albuterol inhaler has been refilled. No evidence of a pneumonia on your chest x-ray. We call your symptoms bronchitis. No role for antibiotics as this is normally viral although you tested negative for COVID, influenza a, influenza B, and RSV. The Tessalon Perles may help with some of your symptoms. Rest and maintain your hydration. Return to the emergency department any new or worsening symptoms. Patient Language: Maori Prescriptions: New albuterol sulfate 90 mcg/actuation HFA aerosol inhaler 1 inh inhalation QID PRN (Reason: shortness of breath or wheezing) Qty: 6.7 0RF benzonatate 100 mg capsule 100 mg PO BID PRN (Reason: cough) Qty: 20 0RF Cepacol Sore Throat-Cough 5-7.5 mg lozenge 1 alyssia PO Q4H PRN (Reason: cough) Qty: 16 0RF No Action spironolactone 100 mg tablet 100 mg PO DAILY montelukast [Singulair] 10 mg tablet 10 mg PO DAILY Zyrtec 10 mg capsule 10 mg PO DAILY PRN fluticasone propionate 50 mcg/actuation spray,suspension 1 - 2 spray intranasal BID Qty: 16 12RF Rx Instructions: administer into each nostril mupirocin 2 % ointment 1 applic topical BID Qty: 22 12RF benzonatate 200 mg capsule 200 mg PO BID PRN (Reason: cough) Qty: 20 0RF doxycycline hyclate 100 mg capsule 100 mg PO DAILY Qty: 10 0RF prednisone 5 mg tablet See Rx Instructions PO DAILY Qty: 11 0RF Rx Instructions: 10mg days 1-4, 5mg days 5-7, take in am azelastine 137 mcg (0.1 %) aerosol,spray See Rx Instructions .ROUTE .COMPLEX Qty: 30 3RF Dose Instruction: USE 1 SPRAY(S) IN EACH NOSTRIL EVERY 12 HOURS Rx Instructions: USE 1 SPRAY(S) IN EACH NOSTRIL EVERY 12 HOURS Follow-up/Referrals: PHYSICIAN,CONTAINER CRANE OPERATOR [Primary Care Provider, Internal Medicine] Antonio Marquez MD [Physician, Family Practice] Stand Alone Forms: Work/School Release IP Time of Disposition: 06:25
[2024-12-18 04:54] VITALS: BP 129/85; PULSE 93; RESP 20; TEMP 37.1; O2SAT 99
--- NOTE | 2024-12-18 04:54 | ECG_ITS ---
Test Date: 2024-12-18 05:16:53 Measurements Intervals Molt Rate: 94 P: 39 NH: 134 QRS: 52 QRSD: 86 T: 17 QT: 327 QTc: 409 Interpretive Statements SINUS RHYTHM WITH SINUS ARRHYTHMIA BORDERLINE ST-T WAVE ABNORMALITY- ANTERIOR LEADS BASELINE ARTIFACT- II, III BORDERLINE ECG Compared to ECG 01/06/2024 01:49:52 HEART RATE HAS DECREASED Electronically Signed On 12-18-2024 06:22:49 CDT by Shoaib Aguilar D.O.
[2024-12-18 05:09] LABS: Hematocrit 41.4 % (37.0-47.0); Hemoglobin 13.5 g/dL (12.0-15.0); Immature Granulocyte Percent A 0.5 % (0-0.5); Lymphocytes Absolute Auto 2.36 K/mm3 (0.9-3.2); Mean Corpuscular HGB Conc 32.6 g/dl (32-36); Mean Corpuscular Hemoglobin 28.6 pg (26-34); Mean Corpuscular Volume 87.7 fl (80-100); Nucleated Red Blood Cells Absolute Auto 0.000 K/mm3 (0.0-0.012); Nucleated Red Blood Cells Perc 0.0 % (0.0-0.2); Platelet Count Result 255 k/mm3 (150-375); Red Blood Count 4.72 M/mm3 (4.2-5.4); White Blood Count 9.7 K/mm3 (4.5-10.0)
[2024-12-18] MEDS: IPRATROPIUM 0.5 MG/ALBUTEROL SULFATE 2.5 MG (BASE) AMPUL.NEB 3 ML INHALATION (05:12)
[2024-12-18 05:14] VITALS: RESP 16
[2024-12-18 05:24] LABS: Alanine Aminotransferase 23 U/L (6-35); Albumin Level 4.1 g/dL (3.5-5.1); Alkaline Phosphatase 77 U/L (38-126); Anion Gap 9 mmol/L (4-12); Aspartate Amino Transferase 24 U/L (14-36); Bilirubin,Total 0.3 mg/dL (0.2-1.3); Blood Urea Nitrogen 15 mg/dL (7-17); Calcium 9.3 mg/dL (8.4-10.2); Carbon Dioxide 23 mmol/L (22-30); Chloride 105 mmol/L (98-107); Estimated Glomerular Filt Rate > 60; Glucose 91 mg/dL (65-110); Potassium 3.9 mmol/L (3.4-5.0); Sodium 137 mmol/L (137-145); Total Protein 7.2 g/dL (6.3-8.2)
[2024-12-18] MEDS: BENZONATATE 100 MG CAPSULE PO (05:39)
[2024-12-18 05:45] LABS: Influenza A QL RT-PCR Negative (Negative); Influenza B QL RT-PCR Negative (Negative); RSV RNA, RT-PCR Negative (Negative); SARS-CoV-2 RNA PCR Negative (Negative)
== END 2024-12-18 06:30 | disposition home or self-care (01) ==
PROVIDERS: Emergency Provider Student in an Organized Health Care Education/Training Program
DX: J45.909 Unspecified asthma, uncomplicated (principal); Z76.0 Encounter for issue of repeat prescription; Z20.822 Contact with and (suspected) exposure to COVID-19; Z87.01 Personal history of pneumonia (recurrent)
CPT/HCPCS: 36415; 71046; 80053; 85025; 85380; 87637; 93005; 94640; 99283; A9270

== ENCOUNTER 2025-01-01 14:25 | Outpatient (CLI) | payer BC, SELFPAY ==
--- NOTE | ~2025-01-01 | CT_ITS ---
EXAMINATION: CT sinus wo con DATE: 01/01/2025 14:41 INDICATION: Chronic sinusitis TECHNIQUE: Computed tomography (CT) of the paranasal sinuses was performed without intravenous contrast. The dose-length product was 276.47 mGy-cm. Automated exposure control and iterative reconstruction technique were employed. COMPARISON: None FINDINGS: Paranasal sinuses and mastoids are pneumatized. There is mild mucosal thickening of the left frontal and ethmoid sinuses. Maxillary sinuses are unremarkable. No significant mucoperiosteal reaction. Rightward nasal septal deviation. Ostiomeatal units are patent. Mastoids are pneumatized. IMPRESSION: 1. Mild sinus disease. Reviewed, dictated and finalized at location O. IMPRESSION: 1. Mild sinus disease.
== END 2025-01-01 14:26 | disposition home or self-care (01) ==
LOC: MICIMG 14:26
PROVIDERS: PCP Otolaryngology; Visit Provider Otolaryngology
DX: J32.9 Chronic sinusitis, unspecified (principal); J32.1 Chronic frontal sinusitis; J34.2 Deviated nasal septum; J32.2 Chronic ethmoidal sinusitis
CPT/HCPCS: 70486